=== PATIENT | female | born 1980 | race Caucasian/White ===

== ENCOUNTER 2016-12-24 17:21 | Emergency (ER) | payer OTHER ==
[~2016-12-24] VITALS: Wt 90.7 kg
[~2016-12-24 17:21] MED LIST: AMOXICILLIN500 M2 PO; AMOXIL500 MG PO; ATARAX25 MG PO; AUGMENTIN 875875 MG PO; BACTRIM DS 8001 TA1 PO; BIAXIN500 MG PO; DARVOCET N 1001 TAB PO; EPI-PEN1 MG/ML MR; EPIPEN 2-PAK1 MG/ML IJ; KEFLEX500 MG PO; KENALOG0.1% TP; MEDROL DOSEPAK4 MG PO; METHYLPHENIDATE20 M1 PO; MOTRIN800 MG PO; Motrin,Rufen800 MG PO; NKHM; PREDNICOT20 MG PO; PREDNISONE10 MG PO; PREDNISONE20 M1 PO; PREDNISONE20 MG PO; PROTONIX40 MG PO; PYRIDIUM200 M1 PO; TESSALON PERLE100 M1 PO; VENLAFAXINE75 M1 PO; VICODIN 5/500 505 MG PO; VISTARIL25 MG PO; XANAX1 MG PO; ZITHROMAX Z PA250 MG PO; ZYRTEC10 M2 PO
[2016-12-24 17:32] VITALS: BP 135/82
[2016-12-24] MEDS ORDERED: CLINDAMYCIN HC300 MG PO (18:44)
== END 2016-12-24 18:47 | disposition home or self-care (01) ==
LOC: ED 17:21
DX: K04.7 Periapical abscess without sinus (principal); Z88.8 Allergy status to other drugs, medicaments and biological substances

== ENCOUNTER 2018-01-07 08:38 | Emergency (ER) | payer OTHER ==
[~2018-01-07] VITALS: Wt 90.7 kg
[~2018-01-07 08:38] MED LIST changes: +CLINDAMYCIN HC300 MG PO
[2018-01-07 08:41] VITALS: BP 126/67
[2018-01-07] MEDS ORDERED: AMOXICILLIN500 M3 PO (09:30)
== END 2018-01-07 09:41 ==
LOC: ED 08:38
DX: K08.89 Other specified disorders of teeth and supporting structures (principal); H11.31 Conjunctival hemorrhage, right eye; J30.2 Other seasonal allergic rhinitis; F17.200 Nicotine dependence, unspecified, uncomplicated; Z98.890 Other specified postprocedural states; Z98.51 Tubal ligation status; Z88.6 Allergy status to analgesic agent

== ENCOUNTER 2019-05-18 22:25 | Emergency (ER) | payer OTHER ==
[~2019-05-18] VITALS: Ht 157.4 cm; Wt 98.9 kg
[~2019-05-18 22:25] MED LIST changes: +AMOXICILLIN500 M3 PO
[2019-05-18 22:27] VITALS: BP 116/71
[2019-05-18] MEDS ORDERED: PSEUDOEPHEDRINE60 MG PO (22:58)
[2019-05-18] MEDS ORDERED: AMOXICILLIN500 M2 PO ×2 (22:58→23:13)
== END 2019-05-18 23:53 | disposition home or self-care (01) ==
LOC: ED 22:25
DX: J32.9 Chronic sinusitis, unspecified (principal); H92.03 Otalgia, bilateral; Z88.8 Allergy status to other drugs, medicaments and biological substances; Z79.2 Long term (current) use of antibiotics

== ENCOUNTER 2020-01-14 12:01 | Inpatient (IN) | payer SELFPAY ==
[~2020-01-14] VITALS: Ht 157.5 cm; Wt 89.8 kg
[~2020-01-14 12:01] MED LIST changes: +PSEUDOEPHEDRINE60 MG PO
[2020-01-14 12:07] VITALS: BP 116/61
[2020-01-14 12:52] LABS: BASO # 0.1 10*3/uL (0.0-0.1); BASO % 0.6 % (0.0-1.0); EOS # 0.3 10*3/uL (0.0-0.4); EOS % 2.4 % (1.0-4.0); HEMATOCRIT 44.2 % (37.0-47.0); LYMPH # 3.7 10*3/uL (1.3-4.4); LYMPH % 34.4 % (27.0-41.0); MEAN CELL VOLUME 93.8 fl (81.0-99.0); MEAN CORPUSCULAR HGB 31.8 pg (27.0-31.0); MEAN CORPUSCULAR HGB CONC 33.9 g/dl (33.0-37.0); MONO # 0.6 10*3/uL (0.1-1.0); MONO % 5.8 % (3.0-9.0); NEUT % 56.1 % (47.0-73.0); PLATELET COUNT AUTOMATED 243 10*3/uL (130-400); RED BLOOD COUNT 4.71 10*6/uL (4.10-5.10); RED CELL DISTRI WIDTH 13.1 % (0-14.5); WHITE BLOOD COUNT 10.8 10*3/uL (4.8-10.8)
[2020-01-14 13:09] LABS: ALBUMIN 3.5 gm/dl (3.1-4.5); ALKALINE PHOSPHATASE 48 U/L (45-117); BUN 6 mg/dl (7-24); CHLORIDE 106 mmol/L (98-107); CREATININE 0.66 mg/dL (0.55-1.02); LIPASE 73 U/L (73-393); SGOT/AST 20 IU/L (3-35); SGPT/ALT 45 U/L (12-78); SODIUM 138 mmol/L (136-145)
[2020-01-14 13:11] LABS: BETA-HCG, QUANT < 1.0 mIU/mL (1-3)
[2020-01-14 14:00] VITALS: BP 114/70
[2020-01-14 15:25] LABS: BILIRUBIN NEGATIVE (NEGATIVE); BLOOD NEGATIVE (NEGATIVE); CLARITY CLEAR (CLEAR); COLOR YELLOW (YELLOW); GLUCOSE NEGATIVE (NEGATIVE); KETONE NEGATIVE (NEGATIVE); LEUKO ESTERASE NEGATIVE (NEGATIVE); NITRITE NEGATIVE (NEGATIVE); SPECIFIC GRAVITY 1.005 (1.005-1.030); UROBILINOGEN 0.2 E.U./dl (0.2-1.0)
[2020-01-14 15:26] LABS: BACTERIA TRACE; EPITHELIAL CELLS 0-2
[2020-01-14 16:00] VITALS: BP 101/42
[2020-01-14 18:00] VITALS: BP 116/78
--- NOTE | 2020-01-14 20:00 | NUR ---
PT UP WALKING AROUND IN ROOM . I MADE HER AWARE THAT SHE NEEDED TO HAVE A PATIENT GOWN ON PER POLICY FOR ADMISSION. SHE WAS NOT HAPPY WITH THIS. SHE DID NOT WANT TO WEAR A GOWN AND ONLY AGREED TO PUT ON HER SWEATPANTS AND A TSHIRT OPPOSED TO HER JEANS AND HOODIE. PT ALSO MADE AWARE THAT SHE WILL BE AN ED HOLD TONIGHT DUE TO LACK OF BEDS UPSTAIRS. SHE WAS ALSO NOT HAPPY ABOUT THIS AND TALKED ABOUT GOING HOME.--CRIS WARNER RN
[2020-01-14 21:46] VITALS: BP 96/54
--- NOTE | 2020-01-14 21:46 | NUR ---
PT JUST HAD RACHEL RONNIE DELIVERED TO HER BY A VISITOR. I INFORMED HER OF HER CLEAR LIQUID DIET ORDER. SHE RESPONDED "MY SISTER IS A NURSE AND SHE TOLD ME IT'S OK TO EAT MY SOUP AND COFFEE AND BESIDES I ALREADY HAD A CAPPUCINO". PT ADVISED NOT TO EAT THE BREAD BECAUSE IT IS NOT LIQUID. PT SAID ANGRILY "MY SISTER SAID IT'S FINE LONG I DON'T EAT AFTER MIDNIGHT"--CRIS WARNER RN
--- NOTE | 2020-01-14 22:15 | NUR ---
REPORT TO HECTOR THOMAS.--CRIS WARNER RN
[2020-01-14 23:45] VITALS: BP 101/42
--- NOTE | 2020-01-14 23:45 | NUR ---
Time: 2344 A 39 year old FEMALE admitted to [facility] under services of VERONICA URIAS DO. Chief complaint: RUQ ABDOMINAL PAIN. NO WOUNDS. SKIN WDI. PT REQUESTING A NICOTINE PATCH AT THIS TIME. NS RUNNING AT 100 ML/HR. MEG JOSHI
--- NOTE | 2020-01-14 23:56 | NUR ---
SPOKE WITH DR AMAYA REGARDING PATIENTS REQUEST FOR NICOTINE PATCH. AWAITING NEW ORDERS.
--- NOTE | 2020-01-14 23:59 | NUR ---
REFUSING TONY OTOOLE.
[2020-01-15 05:58] LABS: BUN 8 mg/dl (7-24); CHLORIDE 110 mmol/L (98-107); CHOLESTEROL 184 mg/dL (<200); CREATININE 0.61 mg/dL (0.55-1.02); SODIUM 141 mmol/L (136-145); TRIGLYCERIDES 377 mg/dl (<150); VLDL CHOLESTEROL 75 mg/dL (6-40)
[2020-01-15 06:08] LABS: FREE T4 1.07 ng/dl (0.76-1.46); HDL CHOLESTEROL 29 mg/dl (40-60); LDL CHOLESTEROL 80 mg/dL (9-159)
[2020-01-15 06:12] LABS: BASO % 0.4 % (0.0-1.0); EOS # 0.3 10*3/uL (0.0-0.4); EOS % 2.7 % (1.0-4.0); HEMATOCRIT 44.8 % (37.0-47.0); LYMPH % 39.4 % (27.0-41.0); MEAN CELL VOLUME 95.5 fl (81.0-99.0); MEAN CORPUSCULAR HGB 31.3 pg (27.0-31.0); MEAN CORPUSCULAR HGB CONC 32.8 g/dl (33.0-37.0); MEAN PLATELET VOLUME 9.5 fl (9.6-12.3); MONO # 0.7 10*3/uL (0.1-1.0); MONO % 6.7 % (3.0-9.0); NEUT # 5.1 10*3/uL (2.3-7.9); NEUT % 50.2 % (47.0-73.0); PLATELET COUNT AUTOMATED 237 10*3/uL (130-400); RED BLOOD COUNT 4.69 10*6/uL (4.10-5.10); RED CELL DISTRI WIDTH 13.2 % (0-14.5); WHITE BLOOD COUNT 10.1 10*3/uL (4.8-10.8)
[2020-01-15] MEDS ORDERED: ZOFRAN4 MG PO (06:36)
[2020-01-15] MEDS ORDERED: PROTONIX40 MG PO (06:36)
== END 2020-01-15 06:39 | disposition home or self-care (01) | DRG 392 ==
LOC: ED 12:01 → EDHOLD 18:40
PROVIDERS: Emergency Medicine; Internal Medicine; ADMIT Internal Medicine
DX: R10.11 Right upper quadrant pain (principal); F17.210 Nicotine dependence, cigarettes, uncomplicated; K76.0 Fatty (change of) liver, not elsewhere classified; R73.9 Hyperglycemia, unspecified; E66.9 Obesity, unspecified; Z71.6 Tobacco abuse counseling; Z88.5 Allergy status to narcotic agent

== ENCOUNTER → 2021-02-23 | Outpatient (CLI) | payer OTHER ==
[~2021-02-23] MED LIST changes: +ZOFRAN4 MG PO
== END | disposition home or self-care (01) ==
LOC: NM 02-22 10:00
PROVIDERS: ATTEND Physician Assistant
DX: R10.84 Generalized abdominal pain (principal)

== ENCOUNTER 2022-04-16 23:09 | Emergency (ER) | payer OTHER ==
[2022-04-16 23:19] VITALS: BP 162/94
[2022-04-17 00:05] LABS: BILIRUBIN Negative (Negative); BLOOD 2+ (Negative); CLARITY Cloudy (Clear); COLOR Yellow (Yellow); GLUCOSE Negative (Negative); KETONE Negative (Negative); LEUKO ESTERASE 2+ (Negative); NITRITE Negative (Negative); PH 5.5 (4.5-8.0); UROBILINOGEN 0.2 E.U./dl (0.0-1.0)
[2022-04-17 00:12] LABS: BACTERIA 2+; RBC 16-20 rbc/hpf (0-2); WBC 41-50 wbc/hpf (0-5)
[2022-04-17] MEDS ORDERED: CIPRO500 MG PO (00:25)
== END 2022-04-17 00:34 | disposition home or self-care (01) ==
LOC: ED 23:09
PROVIDERS: Internal Medicine
DX: N39.0 Urinary tract infection, site not specified (principal); Z88.8 Allergy status to other drugs, medicaments and biological substances; Z90.710 Acquired absence of both cervix and uterus; Z98.890 Other specified postprocedural states; Z87.891 Personal history of nicotine dependence; Z98.51 Tubal ligation status

== ENCOUNTER 2022-07-05 18:19 | Emergency (ER) | payer OTHER ==
[~2022-07-05] VITALS: Ht 157.4 cm; Wt 97.5 kg
[~2022-07-05 18:19] MED LIST changes: +CIPRO500 MG PO
[2022-07-05 19:06] VITALS: BP 137/58
[2022-07-05] MEDS ORDERED: IBUPROFEN600 MG PO (22:46)
== END 2022-07-05 22:55 | disposition home or self-care (01) ==
LOC: ED 18:19
DX: R60.0 Localized edema (principal); F17.210 Nicotine dependence, cigarettes, uncomplicated; Z88.8 Allergy status to other drugs, medicaments and biological substances; Z79.899 Other long term (current) drug therapy; Z79.2 Long term (current) use of antibiotics; Z90.710 Acquired absence of both cervix and uterus; Z98.51 Tubal ligation status; Z98.890 Other specified postprocedural states

== ENCOUNTER → 2022-07-06 | Outpatient (CLI) | payer OTHER ==
[~2022-07-06] MED LIST changes: +IBUPROFEN600 MG PO
== END | disposition home or self-care (01) ==
LOC: US 07:17
PROVIDERS: ATTEND Physician Assistant
DX: R60.9 Edema, unspecified (principal)

== ENCOUNTER 2024-05-08 11:31 | Emergency (ER) | payer SELFPAY ==
[~2024-05-08] VITALS: Ht 160 cm; Wt 95.3 kg
[2024-05-08 11:38] VITALS: BP 124/64
[2024-05-08 12:13] LABS: BASO # 0.1 10*3/uL (0.0-0.1); BASO % 0.4 % (0.0-1.0); EOS # 0.3 10*3/uL (0.0-0.4); EOS % 2.5 % (1.0-4.0); HEMATOCRIT 45.9 % (37.0-47.0); LYMPH # 3.9 10*3/uL (1.3-4.4); LYMPH % 34.8 % (27.0-41.0); MEAN CELL VOLUME 91.6 fl (81.0-99.0); MEAN CORPUSCULAR HGB 31.7 pg (27.0-31.0); MEAN CORPUSCULAR HGB CONC 34.6 g/dl (33.0-37.0); MEAN PLATELET VOLUME 9.4 fl (9.6-12.3); MONO # 0.7 10*3/uL (0.1-1.0); MONO % 5.9 % (3.0-9.0); NEUT # 6.2 10*3/uL (2.3-7.9); NEUT % 55.9 % (47.0-73.0); PLATELET COUNT AUTOMATED 267 10*3/uL (130-400); RED BLOOD COUNT 5.01 10*6/uL (4.10-5.10); WHITE BLOOD COUNT 11.2 10*3/uL (4.8-10.8)
[2024-05-08 12:24] LABS: ACT PARTIAL THROMBO TIME 30.5 SECONDS (20.0-32.1)
[2024-05-08 12:34] LABS: ALKALINE PHOSPHATASE 81 U/L (46-116); BUN 5 mg/dl (9-23); CHLORIDE 103 mmol/L (98-107); LIPASE 37 U/L (12-53); POTASSIUM 3.8 mmol/L (3.4-5.1); SGPT/ALT 39 U/L (5-49); TOTAL PROTEIN 6.9 gm/dL (6.0-8.0)
[2024-05-08] MEDS ORDERED: PEPCID20 MG PO (14:24)
[2024-05-08] MEDS ORDERED: PENICILLIN VK500 MG PO (14:24)
[2024-05-08] MEDS ORDERED: Ondansetron4 MG PO (14:24)
== END 2024-05-08 15:21 | disposition home or self-care (01) ==
LOC: ED 11:31
PROVIDERS: Physician Assistant Medical
DX: K08.89 Other specified disorders of teeth and supporting structures (principal); K21.9 Gastro-esophageal reflux disease without esophagitis; R07.89 Other chest pain; F17.210 Nicotine dependence, cigarettes, uncomplicated; Z88.8 Allergy status to other drugs, medicaments and biological substances; Z98.890 Other specified postprocedural states; Z98.51 Tubal ligation status